=== PATIENT | male | born 1975 | race Caucasian/White ===

== ENCOUNTER 2018-11-07 07:49 | Emergency (ER) | payer BC ==
[~2018-11-07] VITALS: Ht 190.5 cm; Wt 129.3 kg
[2018-11-07 07:56] VITALS: BP_SYST 124
--- NOTE | 2018-11-07 08:00 | NUR ---
ER at bedside examining patient.
--- NOTE | 2018-11-07 08:00 | NUR ---
Patient to ER bed 07 to gown for evaluation. Side rails up.
--- NOTE | 2018-11-07 08:00 | NUR ---
patient arrived AOx4 from home with c/o lower and upper bilateral digit numbness x 2 days. patient has no feeling loss. patient states it feels like "pins and needles" that is getting worse. patient has no medical history of diabetes. patient denies injury at this time. no other complaint or injury otherwise.
--- NOTE | 2018-11-07 08:30 | NUR ---
Patient sent to RD for scan in stable condition.
--- NOTE | 2018-11-07 08:41 | NUR ---
patient returned from RD in stable condition.
[2018-11-07 08:47] LABS: BASOPHILS % (AUTO) 0.5 % (0.0-2.0); EOSINOPHILS # (AUTO) 0.4 K/uL (0.0-0.4); EOSINOPHILS % (AUTO) 6.2 % (0.0-4.0); HEMATOCRIT 47.2 % (36-54); HEMOGLOBIN 15.8 g/dL (14.0-18.0); LYMPHOCYTES # (AUTO) 1.9 K/uL (1.0-5.5); LYMPHOCYTES % (AUTO) 29.2 % (20.5-51.5); MEAN CORPUSCULAR HEMOGLOBIN 30 pg (27-31); MEAN CORPUSCULAR HGB CONC 33 % (32-36); MEAN CORPUSCULAR VOLUME 90 fL (79.0-98.0); MONOCYTES # (AUTO) 0.6 K/uL (0.0-1.0); MONOCYTES % (AUTO) 9.5 % (1.7-9.3); NEUTROPHILS # (AUTO) 3.6 K/uL (1.8-7.7); NEUTROPHILS % (AUTO) 54.6 % (40.0-70.0); PLATELET COUNT (AUTO) 164 K/uL (130-430); RED BLOOD CELL COUNT(AUTO) 5.27 MIL/uL (4.2-6.2); RED CELL DISTRIBUTION WIDTH 13.9 % (9.0-15.0); WHITE BLOOD COUNT (AUTO) 6.6 K/uL (4.8-10.8)
[2018-11-07 09:01] LABS: CALCIUM 9.3 mg/dL (8.4-11.0); CREATININE 0.93 mg/dL (0.55-1.30); POTASSIUM 4.2 mmol/L (3.5-5.1)
[2018-11-07 09:03] LABS: PROTHROMBIN TIME 10.1 SECS (9.5-12.5)
[2018-11-07 09:07] LABS: ALBUMIN 4.1 g/dL (3.4-4.8); TOTAL BILIRUBIN 0.6 mg/dL (0.0-1.0)
[2018-11-07 09:11] LABS: BILIRUBIN,URINE NEGATIVE (NEGATIVE); BLOOD, URINE NEGATIVE (NEGATIVE); CLARITY/URINE CLEAR (CLEAR); COLOR,URINE YELLOW (YELLOW); GLUCOSE,URINE NEGATIVE (NEGATIVE); KETONES,URINE NEGATIVE (NEGATIVE); LEUKOCYTE ESTERASE ,URINE NEGATIVE (NEGATIVE); NITRITE, URINE NEGATIVE (NEGATIVE); PH,URINE 6.5 (5.0-8.0); PROTEIN URINE NEGATIVE (NEGATIVE); UROBILINOGEN,URINE 0.2 (0.2-1.0)
[2018-11-07 09:40] VITALS: BP_SYST 122
--- NOTE | 2018-11-07 09:40 | NUR ---
Patient given written and verbal discharge instructions and verbalizes understanding. ER MD discussed with patient the results and treatment provided. Patient in stable condition. ID arm band removed. Zero Rx given. Patient educated on pain management and to follow up with PMD. Pain Scale 0/10. Opportunity for questions provided and answered. Medication side effect fact sheet provided.
== END 2018-11-07 09:40 | disposition home or self-care (01) ==
LOC: SED 07:49
DX: R20.2 Paresthesia of skin (principal)
CPT/HCPCS: 36415; 70450-TC; 80053; 81003; 85025; 85610-TC; 85730-TC; 99284

== ENCOUNTER 2021-05-19 07:38 | Emergency (ER) | payer BC ==
[~2021-05-19] VITALS: Ht 190.5 cm; Wt 133.8 kg
[2021-05-19 07:48] VITALS: BP_SYST 142
--- NOTE | 2021-05-19 07:48 | NUR ---
Placed in room 2 . Placed on fugitive investigator, blood pressure machine and pulse oximeter. To gown for exam. Side rails up.
--- NOTE | 2021-05-19 07:49 | NUR ---
Pt ambulated to bed 2 with C/O right sided sharp intermittent chest pain / X1day radiating to left shoulder. Not aggravated with movement. Denies SOB. Pt is AAOX4 speaking full sentences. Breathing is even and unlabored. Resting in gurney attached to monitor vital signs holding BP slightly elevated 142/83. No distress noted at this time.
--- NOTE | 2021-05-19 07:53 | NUR ---
ER at bedside examining patient.
[2021-05-19] MEDS ORDERED: ASPIRIN 81 MG TAB.CHEW PO ONE (08:00)
--- NOTE | 2021-05-19 08:01 | NUR ---
Lab at bedside.
--- NOTE | 2021-05-19 08:04 | NUR ---
X-ray at bedside.
[2021-05-19 08:10] LABS: BASOPHILS # (AUTO) 0.1 K/uL (0.0-0.2); EOSINOPHILS # (AUTO) 0.3 K/uL (0.0-0.4); EOSINOPHILS % (AUTO) 2.6 % (0.0-4.0); HEMATOCRIT 44.7 % (36-54); HEMOGLOBIN 15.2 g/dL (14.0-18.0); LYMPHOCYTES # (AUTO) 2.3 K/uL (1.0-5.5); LYMPHOCYTES % (AUTO) 18.7 % (20.5-51.5); MEAN CORPUSCULAR HEMOGLOBIN 32 pg (27-31); MEAN CORPUSCULAR HGB CONC 34 % (32-36); MEAN CORPUSCULAR VOLUME 93 fL (79.0-98.0); MONOCYTES # (AUTO) 0.9 K/uL (0.0-1.0); MONOCYTES % (AUTO) 7.2 % (1.7-9.3); NEUTROPHILS # (AUTO) 8.7 K/uL (1.8-7.7); NEUTROPHILS % (AUTO) 70.5 % (40.0-70.0); PLATELET COUNT (AUTO) 152 K/uL (130-430); RED BLOOD CELL COUNT(AUTO) 4.79 MIL/uL (4.2-6.2); RED CELL DISTRIBUTION WIDTH 14.1 % (9.0-15.0); WHITE BLOOD COUNT (AUTO) 12.3 K/uL (4.8-10.8)
[2021-05-19 08:24] LABS: CALCIUM 9.5 mg/dL (8.4-11.0); POTASSIUM 5.2 mmol/L (3.5-5.1)
[2021-05-19 08:30] LABS: ALBUMIN 4.2 g/dL (3.4-4.8); TOTAL BILIRUBIN 0.5 mg/dL (0.0-1.0)
--- NOTE | 2021-05-19 09:30 | NUR ---
Lab at bedside.
[2021-05-19] MEDS ORDERED: VAL2 PO (10:29)
[2021-05-19 10:46] VITALS: BP_SYST 131
--- NOTE | 2021-05-19 10:46 | NUR ---
Patient given written and verbal discharge instructions and verbalizes understanding. ER MD discussed with patient the results and treatment provided. Patient in stable condition. ID arm band removed. Rx of valium given. Patient educated on pain management and to follow up with PMD. Pain Scale 0/10. Opportunity for questions provided and answered. Medication side effect fact sheet provided.
== END 2021-05-19 10:46 | disposition home or self-care (01) ==
LOC: SED 07:38
DX: R07.89 Other chest pain (principal); Z79.899 Other long term (current) drug therapy
CPT/HCPCS: 36415; 71045; 80053; 83880; 84484; 85025; 93005; 99285